=== PATIENT | male | born 1930 | race Caucasian/White ===

== ENCOUNTER 2016-11-08 09:18 | Inpatient (IN) | payer MEDICARE ==
[~2016-11-08 09:18] MED LIST: ALBUTEROL SULF8.5 GM IH; AMBIEN CR12.5 MG/BO; AMBIEN10 M1 PO; AMBIEN10 MG PO; AMLODIPINE; ASPIR 8181 MG; ASPIRIN81 M1 PO; ASPIRIN81 MG PO; ATENOLOL25 MG; ATORVASTATIN CA80 M1 PO; ATORVASTATIN CA80 MG PO; BESYLATE; CELEXA20 MG PO; COLACE100 MG PO; COLESTID1 G; COMPLETE VITAMI; COREG12.5 M1 PO; COREG3.125 MG PO; COUMADIN2.5 MG PO; COUMADIN5 M2 PO; COUMADIN5 MG PO; CRESTOR40 MG; CRESTOR40 MG PO; DIGOXIN125 MCG PO; EPA-DHA SOFTGEL1 CAP PO; EQL FISH OIL 1,1 CA1 PO; EQL FISH OIL 1,1 CAP; FLOMAX0.4 MG PO; IMDUR30 MG PO; ISOSORBIDE MONO30 M4 PO; LASIX20 MG PO; LASIX40 M1 PO; LASIX40 MG PO; LASIX80 MG PO; LISINOPRIL40 MG; LISINOPRIL5 MG PO; MAGNESIUM400 MG PO; MEDROL4 MG/DOSE- PO; METAMUCIL; METAMUCIL1 PKT; MILK OF MA400 MG/5 M PO; MIRALAX17 G2 PO; MULTIPLE VITAMI1 TAB; MULTIVITAMIN1 TAB PO; MULTIVITAMINS1 EAC6 PO; NITRO-DUR1 P; NITROGLYCERIN0.4 MG SL; NITROSTAT0.4 MG; NORCO 5-325 TA1 EACH PO; NORCO 5/325 TAB1 TAB PO; NORVASC10 MG; NORVASC10 MG PO; NORVASC5 MG PO; OMEPRAZOLE20 M2 PO; PAIN RELIEF325 MG PO; PAIN RELIEF500 M1 PO; PERCOCET; PERCOCET 5/3251 TAB PO; PRINIVIL40 MG; SENNA S TABLET1 TAB PO; STOOL SOFTENER100 M2 PO; STOOL SOFTENER100 MG; TENORMIN25 MG; TRAMADOL HCL50 M2 PO; TRAMADOL HCL50 MG PO; TRIAMTERENE/HYDR1 EA PO; TYLENOL EXTRA500 M1 PO; TYLENOL325 MG PO; TYLENOL500 MG PO; ULTRAM50 MG PO; VITAMIN C PO; VITAMIN C1000 M1 PO; VITAMIN C500 MG; VITAMIN D35000 UNI1 PO; VITAMIN D35000 UNI2 PO
[2016-11-08] MEDS ORDERED: HYDROCODON-ACE1 EA16 PO (09:44)
[2016-11-08 10:32] LABS: BASO % 0.1 % (0-2); EOS % 2.8 % (0-7); EOSINOPHIL ABSOLUTE COUNT 0.2 tho/cmm (0.0-0.7); HCT-HEMATOCRIT 30.4 % (36.0-53.5); HGB-HEMOGLOBIN 9.7 gm/dl (13.5-17.0); IMMATURE GRANULOCYTES ABSOLUTE 0.03 tho/cmm (0-0.03); IMMATURE GRANULOCYTES PERCENT 0.4 % (0-0.3); LYMPH % 12.6 % (20-45); MCH (MEAN CORPUSCULAR HGB) 32.6 pg (28.0-32.0); MCHC MEAN CORPUSCULAR HGB CONC 31.9 % (32.0-36.0); MONO % 14.3 % (0-12); MONOCYTE ABSOLUTE COUNT 1.1 tho/cmm (0.0-1.2); NEUTROPHIL ABSOLUTE COUNT 5.5 tho/cmm (1.6-8.0); NEUTROPHIL-AUTOMATED 5.5 tho/cmm (1.6-8.0); NEUTROPHILS % 69.8 % (40-80); PLATELET COUNT 134 tho/cmm (150-450); RED BLOOD COUNT 2.98 mil/cmm (4.40-5.70); RED CELL DISTRIBUTION WIDTH 14.6 % (12.4-16.4); WHITE BLOOD COUNT 7.9 tho/cmm (4.0-10.0)
[2016-11-08 10:37] LABS: INR 2.9 INR (0.9-1.1); PROTHROMBIN TIME 34.3 SECONDS (9.0-13.6)
[2016-11-08 10:41] LABS: ANION GAP 12 mmol/L (0-20); BLOOD UREA NITROGEN 38 mg/dl (6-24); CALCIUM 8.6 mg/dl (8.5-10.5); CARBON DIOXIDE-VENOUS 26 mmol/L (22-32); CHLORIDE 109 mmol/l (96-110); CREATININE 1.64 mg/dl (0.60-1.30); GLUCOSE 98 mg/dL (70-110); SODIUM 143 mmol/L (135-145); eGFR VALUE FOR BLACK 44 mL/Min
[2016-11-08] MEDS ORDERED: COUMADIN4 M1 PO ×2 (11:21)
[2016-11-08] MEDS ORDERED: NEURONTIN300 M1 PO (11:22)
[2016-11-09 06:35] LABS: INR 3.3 INR (0.9-1.1); PROTHROMBIN TIME 39.5 SECONDS (9.0-13.6)
[2016-11-09 06:44] LABS: ANION GAP 12 mmol/L (0-20); BLOOD UREA NITROGEN 36 mg/dl (6-24); CALCIUM 8.1 mg/dl (8.5-10.5); CARBON DIOXIDE-VENOUS 25 mmol/L (22-32); CHLORIDE 111 mmol/l (96-110); CREATININE 1.54 mg/dl (0.60-1.30); GLUCOSE 90 mg/dL (70-110); POTASSIUM 4.4 mmol/L (3.7-5.1); SODIUM 144 mmol/L (135-145); eGFR VALUE FOR BLACK 47 mL/Min
[2016-11-10 05:52] LABS: BASO % 0.5 % (0-2); EOS % 5.3 % (0-7); EOSINOPHIL ABSOLUTE COUNT 0.3 tho/cmm (0.0-0.7); HCT-HEMATOCRIT 29.3 % (36.0-53.5); HGB-HEMOGLOBIN 9.1 gm/dl (13.5-17.0); IMMATURE GRANULOCYTES ABSOLUTE 0.05 tho/cmm (0-0.03); IMMATURE GRANULOCYTES PERCENT 0.9 % (0-0.3); LYMPH % 25.9 % (20-45); LYMPH ABSOLUTE COUNT 1.5 tho/cmm (0.8-4.5); MCH (MEAN CORPUSCULAR HGB) 32.6 pg (28.0-32.0); MCHC MEAN CORPUSCULAR HGB CONC 31.1 % (32.0-36.0); MEAN PLATELET VOLUME 9.6 cmc (9.4-12.4); MONOCYTE ABSOLUTE COUNT 1.1 tho/cmm (0.0-1.2); NEUTROPHIL ABSOLUTE COUNT 2.8 tho/cmm (1.6-8.0); NEUTROPHIL-AUTOMATED 2.8 tho/cmm (1.6-8.0); NEUTROPHILS % 48.4 % (40-80); PLATELET COUNT 130 tho/cmm (150-450); RED BLOOD COUNT 2.79 mil/cmm (4.40-5.70); WHITE BLOOD COUNT 5.7 tho/cmm (4.0-10.0)
[2016-11-10 05:59] LABS: INR 3.2 INR (0.9-1.1)
[2016-11-10 06:11] LABS: ANION GAP 13 mmol/L (0-20); BLOOD UREA NITROGEN 40 mg/dl (6-24); CARBON DIOXIDE-VENOUS 28 mmol/L (22-32); CHLORIDE 107 mmol/l (96-110); CREATININE 1.77 mg/dl (0.60-1.30); GLUCOSE 92 mg/dL (70-110); POTASSIUM 4.7 mmol/L (3.7-5.1); SODIUM 143 mmol/L (135-145); eGFR VALUE FOR BLACK 40 mL/Min
[2016-11-11 06:26] LABS: INR 2.7 INR (0.9-1.1); PROTHROMBIN TIME 32.7 SECONDS (9.0-13.6)
[2016-11-11 06:34] LABS: ANION GAP 11 mmol/L (0-20); BLOOD UREA NITROGEN 45 mg/dl (6-24); CALCIUM 8.2 mg/dl (8.5-10.5); CARBON DIOXIDE-VENOUS 27 mmol/L (22-32); CHLORIDE 104 mmol/l (96-110); CREATININE 1.66 mg/dl (0.60-1.30); GLUCOSE 93 mg/dL (70-110); POTASSIUM 4.8 mmol/L (3.7-5.1); SODIUM 137 mmol/L (135-145); eGFR VALUE FOR BLACK 43 mL/Min
[2016-11-13] MEDS ORDERED: MIRALAX17 G2 PO (11:50)
[2016-11-13] MEDS ORDERED: ULTRAM50 M1 PO (11:50)
[2016-11-13] MEDS ORDERED: ASPERCREME1 EACH TOP (11:51)
[2017-03-25] MEDS ORDERED: PERCOCET 5-3251 EACH PO (02:56)
[2017-03-25] MEDS ORDERED: TYLENOL EXTRA500 M1 PO (02:57)
[2017-03-25] MEDS ORDERED: ULTRAM50 M1 PO (02:57)
[2017-03-25] MEDS ORDERED: CELEXA20 M2 PO (07:49)
[2017-03-26] MEDS ORDERED: COUMADIN2 M1 PO (13:09)
[2017-03-26] MEDS ORDERED: COUMADIN6 M1 PO (13:10)
[2017-03-26] MEDS ORDERED: COUMADIN4 M1 PO (13:10)
[2017-05-11] MEDS ORDERED: MIRALAX17 G2 PO (15:34)
[2017-05-25] MEDS ORDERED: NYSTATIN100000 UNI SSW (12:35)
[2017-05-25] MEDS ORDERED: MIDODRINE HCL5 M1 PO (12:37)
[2017-05-25] MEDS ORDERED: BISOPROLOL FUMAR5 M1 PO (12:41)
[2017-05-25] MEDS ORDERED: DURAGESIC1 EAC5 TOP (12:42)
[2017-05-25] MEDS ORDERED: TYLENOL325 M2 PO (12:45)
[2017-05-25] MEDS ORDERED: GAVILAX17 G2 PO (12:47)
[2017-05-25] MEDS ORDERED: SENNA-S TABLET1 EAC3 PO (12:49)
[2017-05-25] MEDS ORDERED: ZEGERID 40 MG1 EAC1 PO (12:50)
[2017-05-25] MEDS ORDERED: LIDODERM1 EACH TD (12:53)
[2017-05-25] MEDS ORDERED: ANALGESIC BALM30 G2 EXT (12:54)
[2017-05-25] MEDS ORDERED: MELATONIN3 M4 PO (13:00)
== END 2016-11-13 12:34 | DRG 183 ==
LOC: EDMED 09:18 → EMR2 11:47 → CAR1 12:38
PROVIDERS: Emergency Medicine; Internal Medicine; Physician Assistant; ADMIT Family Medicine
DX: S22.42XA Multiple fractures of ribs, left side, initial encounter for closed fracture (principal); G93.40 Encephalopathy, unspecified; I50.22 Chronic systolic (congestive) heart failure; D69.6 Thrombocytopenia, unspecified; F03.90 Unspecified dementia, unspecified severity, without behavioral disturbance, psychotic disturbance, mood disturbance, and anxiety; D53.9 Nutritional anemia, unspecified; I25.10 Atherosclerotic heart disease of native coronary artery without angina pectoris; I48.2 Chronic atrial fibrillation; K59.00 Constipation, unspecified; N18.9 Chronic kidney disease, unspecified; R09.02 Hypoxemia; T40.605A Adverse effect of unspecified narcotics, initial encounter; Z79.01 Long term (current) use of anticoagulants; Z95.0 Presence of cardiac pacemaker; I35.0 Nonrheumatic aortic (valve) stenosis; E78.5 Hyperlipidemia, unspecified; Z79.82 Long term (current) use of aspirin; Z95.1 Presence of aortocoronary bypass graft; V48.4XXA Person boarding or alighting a car injured in noncollision transport accident, initial encounter
CPT/HCPCS: G0378; G8978-GO-CK; G8978-GP-CK; G8979-GO-CJ; G8979-GP-CK; J1170; J2405; J7030